=== PATIENT | female | born 1960 | race Caucasian/White ===

== ENCOUNTER 2017-01-09 23:00 | Inpatient (IN) | payer MEDICAID ==
[~2017-01-09] VITALS: Ht 137.2 cm; Wt 90.3 kg
[~2017-01-09 23:00] MED LIST: AMIT10TA6 PO; ASPI-1159 PO; BUSP5TAB3 PO; DOCU-150 PO; FURO-152 PO; GABA-531 PO; GLIMEPIRIDE; IBUP-1509 PO; INSU3INS6 SUBCUT; LISI10TA5 PO; NOVOLIN N; OMEP20TA15 PO; PRAV40TA58 PO
[2017-01-09] MEDS ORDERED: ASPIRIN 81MG TABLET PO ONE (23:45)
[2017-01-09] MEDS ORDERED: NITROGLYCERIN OINT 1GM/INCH UDPKT TD ONE (23:45)
[2017-01-09 23:54] LABS: BASOPHILS % 0.9 % (0.0-2.0); EOSINOPHILS % 3.6 % (0.0-5.0); HEMATOCRIT. 32.9 % (36.0-48.0); HEMOGLOBIN. 10.5 g/dL (12.0-16.0); LYMPHOCYTES % 21.6 % (20.0-50.0); MEAN CORPUSCULAR HEMOGLOBIN 25.8 pg (28.0-32.0); MEAN CORPUSCULAR VOLUME 80.5 fL (81.0-99.0); MEAN PLATELET VOLUME 10.1 fl (7.4-10.4); MONOCYTES % 4.7 % (2.0-8.0); NEUTROPHILS % 69.2 % (40.0-76.0); PLATELET 293 x1000/uL (130-400); RED BLOOD CELL COUNT 4.08 mill/uL (4.2-5.4); RED CELL DISTRIBUTION WIDTH 14.8 % (11.6-14.6)
[2017-01-10 00:11] LABS: CARBON DIOXIDE 27 mEq/L (21-32); CHLORIDE 94 mEq/L (98-107); TROPONIN I < 0.02 ng/mL (0.00-0.04)
[2017-01-10] MEDS ORDERED: INSULIN REGULAR (HUMULIN R) 300UNITS/3ML SUBCUT SCH (01:00)
[2017-01-10 09:15] VITALS: BP 127/49
[2017-01-10 09:40] VITALS: BP 127/49
[2017-01-10] MEDS ORDERED: MORPHINE SULFATE 2 MG/ML CPJ (NOT FOR IM USE) IV PRN (10:00)
[2017-01-10] MEDS ORDERED: DEXTROSE 50% WATER 50ML SYRINGE IV PRN (10:00)
[2017-01-10] MEDS: MORPHINE SULFATE 4 MG/ML CPJ (NOT FOR IM USE) IV PRN ×2 (10:56→20:22)
[2017-01-10] MEDS ORDERED: REGADENOSON 0.4 MG/5 ML IV NR (11:45)
[2017-01-10] MEDS ORDERED: CLONIDINE 0.2MG TABLET PO PRN (11:45)
[2017-01-10] MEDS ORDERED: CLONIDINE 0.1MG TABLET PO PRN (11:45)
[2017-01-10 12:00] VITALS: BP 152/56
[2017-01-10 12:47] LABS: HEMATOCRIT 30.4 % (36.0-48.0); HEMOGLOBIN 9.8 g/dL (12.0-16.0); MEAN CORPUSCULAR HEMOGLOBIN 25.6 pg (28.0-32.0); MEAN CORPUSCULAR VOLUME 79.4 fL (81.0-99.0); PLATELET 278 x1000/uL (130-400); RED BLOOD CELL COUNT 3.82 mill/uL (4.2-5.4); RED CELL DISTRIBUTION WIDTH 14.8 % (11.6-14.6)
[2017-01-10] MEDS: BLOOD SUGAR DIAGNOSTIC STRIP TEST SCH ×3 (12:47→21:11)
[2017-01-10] MEDS: BUSPIRONE HCL 5MG TABLET PO SCH ×2 (13:20→16:40)
[2017-01-10] MEDS: DOCUSATE SODIUM 100MG CAPSULE PO SCH ×2 (13:20→16:40)
[2017-01-10] MEDS: INSULIN LISPRO 100 UNITS/ML SUBCUT SCH ×5 (13:25→21:00)
[2017-01-10 13:30] LABS: CARBON DIOXIDE 32 mEq/L (21-32); CHLORIDE 98 mEq/L (98-107); HDL CHOLESTEROL 45 mg/dL (40-59); LDL CHOLESTEROL 92 mg/dL (5-100); TROPONIN I < 0.02 ng/mL (0.00-0.04)
[2017-01-10 16:00] VITALS: BP 158/58
[2017-01-10] MEDS: GABAPENTIN 300MG CAPSULE PO SCH (16:40)
[2017-01-10 20:00] VITALS: BP 111/49
[2017-01-10 20:16] LABS: *AMPHETAMINES SCREEN URINE NEGATIVE (NEGATIVE); *BARBITURATES SCREEN URINE NEGATIVE (NEGATIVE); *BENZODIAZEPINES SCREEN URINE NEGATIVE (NEGATIVE); *COCAINE SCREEN URINE NEGATIVE (NEGATIVE); CANNABINOID URINE SCREEN NEGATIVE (NEGATIVE); METHADONE URINE SCREEN NEGATIVE (NEGATIVE); OPIATES URINE SCREEN PRESUMTIVE POSITIVE (NEGATIVE); PHENCYCLIDINE URINE SCREEN NEGATIVE (NEGATIVE)
[2017-01-10] MEDS ORDERED: AMITRIPTYLINE 10MG TABLET PO SCH (21:00)
[2017-01-10] MEDS ORDERED: ATORVASTATIN CALCIUM 40MG TABLET PO SCH (21:00)
[2017-01-10] MEDS ORDERED: INSULIN DETEMIR UD 100 UNITS/ML SYR SUBCUT SCH ×2 (21:00→22:00)
[2017-01-10] MEDS: METOPROLOL TARTRATE 25MG TABLET PO SCH (21:11)
[2017-01-11] VITALS: BP 121/44
[2017-01-11 04:00] VITALS: BP 152/52
[2017-01-11] MEDS: BLOOD SUGAR DIAGNOSTIC STRIP TEST SCH ×2 (06:25→13:01)
[2017-01-11] MEDS: INSULIN LISPRO 100 UNITS/ML SUBCUT SCH ×4 (06:25→13:14)
[2017-01-11 07:17] LABS: BASOPHILS % 0.9 % (0.0-2.0); EOSINOPHILS % 4.1 % (0.0-5.0); HEMOGLOBIN. 9.8 g/dL (12.0-16.0); LYMPHOCYTES % 26.6 % (20.0-50.0); MEAN CORPUSCULAR HEMOGLOBIN 25.4 pg (28.0-32.0); MEAN CORPUSCULAR VOLUME 80.4 fL (81.0-99.0); MEAN PLATELET VOLUME 9.7 fl (7.4-10.4); MONOCYTES % 5.4 % (2.0-8.0); PLATELET 292 x1000/uL (130-400); RED BLOOD CELL COUNT 3.86 mill/uL (4.2-5.4)
[2017-01-11] MEDS ORDERED: OMEPRAZOLE 20MG CAPSULE EXTENDED RELEASE PO SCH (07:20)
[2017-01-11 07:28] LABS: CARBON DIOXIDE 29 mEq/L (21-32); CHLORIDE 100 mEq/L (98-107); CREATINE KINASE 161 IU/L (26-192); HDL CHOLESTEROL 35 mg/dL (40-59); LDL CHOLESTEROL 93 mg/dL (5-100)
[2017-01-11 07:33] LABS: CREATINE KINASE MB FRACTION < 0.5 ng/mL (0.5-3.6); TROPONIN I 0.02 ng/mL (0.00-0.04)
[2017-01-11 08:00] VITALS: BP 149/53
[2017-01-11] MEDS ORDERED: ENOXAPARIN 40MG/0.4ML SYR SUBCUT SCH (09:00)
[2017-01-11] MEDS ORDERED: FUROSEMIDE 20MG TABLET PO SCH (09:00)
[2017-01-11] MEDS ORDERED: ISOSORBIDE MONONITRATE 30MG TABLET SR 24HR PO SCH (09:00)
[2017-01-11] MEDS ORDERED: LISINOPRIL 10MG TABLET PO SCH (09:00)
[2017-01-11] MEDS ORDERED: ASPIRIN 81MG TABLET PO SCH (09:00)
[2017-01-11] MEDS ORDERED: REGADENOSON 0.4 MG/5 ML IV ONE (09:22)
[2017-01-11] MEDS ORDERED: INSULIN DETEMIR UD 100 UNITS/ML SYR SUBCUT SCH (10:00)
[2017-01-11] MEDS: DOCUSATE SODIUM 100MG CAPSULE PO SCH ×2 (10:39→13:15)
[2017-01-11] MEDS: METOPROLOL TARTRATE 25MG TABLET PO SCH (10:39)
[2017-01-11] MEDS: BUSPIRONE HCL 5MG TABLET PO SCH ×2 (10:40→13:15)
[2017-01-11] MEDS: GABAPENTIN 300MG CAPSULE PO SCH (10:40)
[2017-01-11 12:00] VITALS: BP 130/59
[2017-01-11] MEDS ORDERED: FENOFIBRATE NANOCRYSTALLIZED 48MG TABLET PO SCH (14:15)
[2017-01-11 15:24] VITALS: BP 130/59
== END 2017-01-11 15:50 | disposition home or self-care (01) | DRG 203 ==
LOC: ER 23:00 → 6WST 01-10 00:47 → EDBEDREQTM 01-10 00:50 → EDBEDREQ 01-10 00:50 → ENRESERV 01-10 05:45
PROVIDERS: ADMIT Internal Medicine; ATTEND Internal Medicine
DX: M94.0 Chondrocostal junction syndrome [Tietze] (principal); E11.42 Type 2 diabetes mellitus with diabetic polyneuropathy; E46 Unspecified protein-calorie malnutrition; E11.65 Type 2 diabetes mellitus with hyperglycemia; I11.9 Hypertensive heart disease without heart failure; D64.9 Anemia, unspecified; D72.829 Elevated white blood cell count, unspecified; E66.9 Obesity, unspecified; K21.9 Gastro-esophageal reflux disease without esophagitis; E78.00 Pure hypercholesterolemia, unspecified; E78.5 Hyperlipidemia, unspecified; E87.1 Hypo-osmolality and hyponatremia; M19.90 Unspecified osteoarthritis, unspecified site; Z79.899 Other long term (current) drug therapy; I69.351 Hemiplegia and hemiparesis following cerebral infarction affecting right dominant side; Z68.42 Body mass index [BMI] 45.0-49.9, adult; Z79.82 Long term (current) use of aspirin; Z82.49 Family history of ischemic heart disease and other diseases of the circulatory system
CPT/HCPCS: 36415; 71010; 78452; 80048; 80053; 80061; 80305; 82550; 82553; 82962; 83036; 83735; 83880; 84443; 84484; 85025; 85027; 85379; 93005; 93017; 93306; 93970; 96372; 99285; A9500; J1650; J1815; J2270; J2785

== ENCOUNTER 2017-03-30 23:55 | Emergency (ER) | payer MEDICAID ==
[~2017-03-30] VITALS: Ht 162.6 cm; Wt 91.0 kg
[~2017-03-30 23:55] MED LIST changes: -IBUP-1509 PO; +IBUP-2028 PO
[2017-03-31 04:31] LABS: BASOPHILS % 0.8 % (0.0-2.0); EOSINOPHILS % 0.4 % (0.0-5.0); HEMATOCRIT. 38.8 % (36.0-48.0); HEMOGLOBIN. 12.7 g/dL (12.0-16.0); LYMPHOCYTES % 16.3 % (20.0-50.0); MEAN CORPUSCULAR HEMOGLOBIN 27.2 pg (28.0-32.0); MEAN PLATELET VOLUME 11.4 fl (7.4-10.4); MONOCYTES % 6.8 % (2.0-8.0); NEUTROPHILS % 75.7 % (40.0-76.0); PLATELET 266 x1000/uL (130-400); RED BLOOD CELL COUNT 4.67 mill/uL (4.2-5.4); RED CELL DISTRIBUTION WIDTH 15.5 % (11.6-14.6)
[2017-03-31 04:35] LABS: CHLORIDE 87 mEq/L (98-107)
[2017-03-31 04:43] LABS: CARBON DIOXIDE 25 mEq/L (21-32)
[2017-03-31 04:49] LABS: PROTHROMBIN TIME 10.3 sec (9.4-11.6)
[2017-03-31] MEDS ORDERED: LACTATED RINGERS 1,000 ML IV STA ×2 (05:05→05:14)
[2017-03-31] MEDS ORDERED: POTASSIUM CHLORIDE INJ 40 MEQ in DEXT 5% WATER 500 ML IV ONE (05:15)
[2017-03-31] MEDS ORDERED: INSULIN REGULAR (HUMULIN R) UD 100 UNITS/ML SYR IV ONE (05:15)
[2017-03-31] MEDS ORDERED: INSULIN REGULAR (HUMULIN R) 300UNITS/3ML IV ONE (07:55)
[2017-03-31 08:53] LABS: GLUCOSE URINE 3+ (NEGATIVE); KETONES URINE NEGATIVE (NEGATIVE); LEUKOCYTE ESTERASE URINE NEGATIVE (NEGATIVE); NITRITE URINE NEGATIVE (NEGATIVE); OCCULT BLOOD URINE NEGATIVE (NEGATIVE); PH URINE 5.5 (4.5-8.0); PROTEIN URINE NEGATIVE (NEGATIVE); SPECIFIC GRAVITY URINE 1.025 (1.005-1.030); UROBILINOGEN URINE 0.2 E.U./dL (0.2-1.0)
[2017-03-31 08:59] LABS: CLARITY URINE CLEAR (CLEAR); COLOR URINE PALE YELLOW (YELLOW)
[2017-03-31 12:47] LABS: BASOPHILS % 0.3 % (0.0-2.0); EOSINOPHILS % 1.4 % (0.0-5.0); HEMATOCRIT. 33.7 % (36.0-48.0); HEMOGLOBIN. 11.3 g/dL (12.0-16.0); LYMPHOCYTES % 29.5 % (20.0-50.0); MEAN CORPUSCULAR HEMOGLOBIN 27.2 pg (28.0-32.0); MEAN CORPUSCULAR VOLUME 81.1 fL (81.0-99.0); MEAN PLATELET VOLUME 9.7 fl (7.4-10.4); MONOCYTES % 5.9 % (2.0-8.0); NEUTROPHILS % 62.9 % (40.0-76.0); PLATELET 224 x1000/uL (130-400); RED BLOOD CELL COUNT 4.16 mill/uL (4.2-5.4); RED CELL DISTRIBUTION WIDTH 15.4 % (11.6-14.6)
[2017-03-31 13:45] VITALS: BP 152/57
== END 2017-03-31 18:35 | disposition short-term general hospital (02) ==
LOC: ER 23:55 → EDBEDREQ 03-31 02:48 → ENRESERV 03-31 12:33 → CANRESERV 03-31 12:33 → ER 03-31 18:35 → CANBEDREQ 03-31 19:21
DX: H54.62 Unqualified visual loss, left eye, normal vision right eye (principal); R68.84 Jaw pain; E11.65 Type 2 diabetes mellitus with hyperglycemia; D72.829 Elevated white blood cell count, unspecified; I10 Essential (primary) hypertension; Z79.4 Long term (current) use of insulin; Z79.82 Long term (current) use of aspirin
CPT/HCPCS: 36415; 36569; 71010; 76937; 77001; 80048; 80053; 81001; 82010; 82962; 83605; 85025; 85610; 85651; 86140; 93005; 96361; 96365; 96366; 96375; 99285; C1725; C1893; J1815; J3480; J7120; Z7610; J7060